=== PATIENT | male | born 1940 | race Caucasian/White ===

== ENCOUNTER 2019-06-24 15:33 | Outpatient (CLI) | payer MEDICARE, SELFPAY ==
--- NOTE | 2019-06-24 15:52 | CT_ITS ---
WS: [id number] CT CHEST TECHNIQUE: Noncontrast CT of the chest with coronal and sagittal reformatted images. CLINICAL INFORMATION: CHRONIC COUGH COMPARISON: DLP: 1171.[address] scans at [facility] use at least one of these dose optimization techniques: automat ed exposure control; mA and/or kV adjustment per patient size (includes targeted exams where dose is matched to clinical indication); or iterative reconstruction. FINDINGS: Mild chronic emphysematous changes. No acute pulmonary infiltrates. No consolidation or pleural fluid . No suspicious pulmonary parenchymal opacities. No mediastinal or hilar lymphadenopathy. Thoracic aortic calcification. Coronary calcification. No ax illary lymphadenopathy. Cholelithiasis. Normal GE junction. Ankylosis thoracic spine. Postoperative c hanges partially visualized in the thoracolumbar junction and lower cervical spine. Right total shoul prmio arthroplasty. CT/CT chest wo con [id number] IMPRESSION: 1. Mild chronic emphysematous changes. No acute pulmonary infiltrates. 2. No suspicious pulmonary parenchymal opacities. 3. No mediastinal or hilar lymphadenopathy. 4. Aortic calcification including coronary. 5. Cholelithiasis. This can be followed up with ultrasound.
== END 2019-06-24 15:34 | disposition home or self-care (01) ==
LOC: RADWPI 15:38
PROVIDERS: Family Provider Family Medicine; PCP Family Medicine; Visit Provider Family Medicine
DX: J43.9 Emphysema, unspecified (principal); R05 Cough; I70.0 Atherosclerosis of aorta; K80.20 Calculus of gallbladder without cholecystitis without obstruction
CPT/HCPCS: 71250

== ENCOUNTER 2019-09-21 13:40 | Outpatient (CLI) | payer MEDICARE, SELFPAY ==
--- NOTE | 2019-09-21 14:25 | PFTS_ITS ---
Date of Study:09/21/19 Date of Dictation: MECHANICS: Forced vital capacity (FVC) is reduced. Forced expiratory volume in one second (FEV1) is normal. FEV1/FVC is normal. FLOW VOLUME LOOP: Narrow. LUNG VOLUMES: Total lung capacity (TLC) is normal. Residual volume (RV) is normal. DIFFUSING CAPACITY FOR CARBON MONOXIDE: Moderately reduced. INTERPRETATION: The pulmonary function tests are consistent with mild restriction. Lung volumes are normal. Gas exchange (DLCO) is moderately reduced. MTDD
== END 2019-09-21 13:41 | disposition home or self-care (01) ==
LOC: RT 13:44
PROVIDERS: PCP Family Medicine; Visit Provider Family Medicine
DX: R05 Cough (principal)
CPT/HCPCS: 94010; 94726; 94729

== ENCOUNTER 2019-10-21 07:00 | Outpatient (CLI) | payer MEDICARE, SELFPAY ==
--- NOTE | 2019-10-21 07:15 | USCV_ITS ---
Sergio Whyte Age: 79 Gender: M : 1940 Exam Date: 10/21/2019 06:57 Ordering Phys: Zak Medeiros MD ([email or web address]) Technologist: Emmanuelle Anderson Exam Location: [facility] [place] Indication: Carotid stenosis surveillance Risk Factors: Unknown Previous Vascular Surgery: R CEA Right Brachial BP: / Left Brachial BP: / Right Left Velocity (cm/s) Spectral Plaque Velocity (cm/s) Spectral Plaque Syst/Diast Broadening Syst/Diast Broadening 82.40/ 14.70 Prox CCA 67.50 / 12.00 67.80/ 6.40 Mid CCA 76.00 / 15.40 62.80/ 9.90 Homo Distal CCA 64.90 / 13.70 66.20/ 11.00 Prox ICA 67.30 / 9.90 Hetro 62.80/ 13.20 Mid ICA 56.20 / 15.40 62.80/ 11.00 Distal ICA 51.30 / 11.10 115.10 ECA 83.25 1.05 ICA/CCA 1.04 Antegrade Vertebral Antegrade 42.70/ 13.20 cm/s 64.90/ 12.00 cm/s Bi Subclavian Tri 95.90 70.90 FINDINGS Comparison: 12-03-18. Prior right CEA. Tortuous carotid arteries with diffuse atherosclerosis, left greater than right. No recurrent or significant stenosis. CONCLUSIONS Bilateral ICA stenosis less than 50%. Mild bilateral diffuse atherosclerosis, left >right. No significant stenosis. Dr. Amy Martin DO (Electronically Signed) Final Date: 21 October 2019 07:53 S
== END 2019-10-21 07:01 | disposition home or self-care (01) ==
LOC: RAD 07:02
PROVIDERS: PCP Family Medicine; Visit Provider Internal Medicine Cardiovascular Disease
DX: I65.23 Occlusion and stenosis of bilateral carotid arteries (principal)
CPT/HCPCS: 93880

== ENCOUNTER → 2019-12-08 09:55 | Day surgery (SDC) | payer MEDICARE, SELFPAY ==
[2019-12-08 10:17] VITALS: BMI 34.9
[2019-12-08 10:29] VITALS: BP 140/55; PULSE 62; RESP 18; TEMP 36.3; O2SAT 18
[2019-12-08] MEDS: iron sucrose 200 MG in sodium chloride 0.9% (100 ml) 100 ML 220 MG IV (10:30)
== END ==
PROVIDERS: PCP Family Medicine; Visit Provider Nurse Practitioner
DX: D50.9 Iron deficiency anemia, unspecified (principal); N18.4 Chronic kidney disease, stage 4 (severe)
CPT/HCPCS: 96365; J1756

== ENCOUNTER 2019-12-08 13:48 | Outpatient (CLI) | payer MEDICARE, SELFPAY ==
--- NOTE | 2019-12-11 13:31 | ONC FU_ITS ---
Dr. Ferrari Patient Follow-Up Note Patient: Sergio Whyte Unit #: [id number]: 1940 Dicatated By: Riley Ferrari M.D.Date of Visit:Dec 08, 2019 Onc Med Follow-up/Prog Note Chief Complaint: Carcinoma of right renal pelvis. 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 He has a history of nephrolithiasis. He had seen Dr. Cartagena with nausea and leukocytosis following back surgery in November 2016. He was evaluated with CT abdomen/pelvis on 12/03/2016. There were no acute intra-abdominal or pelvic findings noted on that study. However, findings included a soft tissue attenuation within the right kidney lower pole calyx measuring 1.3 x 2.3 cm. Reported differential included inflammatory or neoplastic lesion. Also noted was a nonobstructing right ureteral pelvic junction calculus measuring 9.6 mm. There was no inguinal, retroperitoneal, or mesenteric lymphadenopathy noted. He was referred to Dr. Glaser. The scans were reviewed at the [facility]. Ultimately, he did opt to proceed with cystoscopy and right flexible ureterorenoscopy on 05/05/2017. Several areas of papillary transitional cell carcinoma-appearing lesions were noted extending in the infundibulum to the upper pole compound calyx. Biopsy did confirm high-grade papillary carcinoma, estimated Eloy's grade 3. He was referred to Dr. Dominic Anthony. On 06/16/2017 he underwent laparoscopic robotic-assisted right nephroureterectomy. Pathology showed high-grade, invasive papillary urothelial carcinoma measuring 2.8 x 1.2 x 1.2 cm. Tumor was noted to invade beyond the muscularis into the renal parenchyma. The margins were negative. There were no lymph nodes included in the surgical specimen. His postoperative course was complicated by cellulitis/wound infection, but ultimately it did heal. In the meantime, he was seen at [facility] [place] [facility] for a second opinion evaluation, and observation/expectant management was recommended, to include surveillance CT scanning every 3 months. His other medical illnesses include hypertension, hyperlipidemia, coronary artery disease, chronic kidney disease, benign prostatic hypertrophy, nephrolithiasis, degenerative arthritis, Sjogren's syndrome, and depression. He had previously smoked 1-1/2 packs of cigarettes daily for a period of 20 years. He quit smoking in 1976. INTERIM HISTORY: Surveillance CT scans of the chest, abdomen, and pelvis on 11/14/2017 showed no evidence of recurrent or metastatic disease. His repeat CT scans on 02/19/2018 again showed no evidence of recurrent or metastatic disease in the chest, abdomen, or pelvis. He remained on observation/expectant management. He underwent a reverse right shoulder replacement in April 2018. He tolerated that procedure very well, but he then had an upper GI bleed in May. He did require transfusion of 2 units of PRBC. He then continued on an iron supplement and he stopped aspirin. Surveillance CT scans on 08/19/2018 showed no evidence of metastatic disease in the chest, abdomen, or pelvis. The right renal fossa appeared unremarkable. Surveillance CT scans on 02/11/2019 showed no evidence for recurrent or metastatic disease in the chest, abdomen, or pelvis. He continued on observation/expectant management. He is seen for a scheduled visit. He says his energy is not good, but he is able to do light work. ECOG score is 1. He has good appetite. His weight is stable. He has no fever or night sweats. He has occasional sinus drainage, and he has a hacking cough. He says his breathing is not real good. He does not complain of chest pain. He has no GI/ complaints other than occasional constipation. He has joint pain, especially in his hands. Recently he has been having pain in the posterior/lateral left hip area. He does not complain of headache. He has occasional orthostatic lightheadedness. He reports having numbness in both hands. Medications: Aspirin 1 Tablet (of 81 mg) Oral daily, Cholecalciferol 1 Tablet (of 2000 Units) Oral daily, Docusate Sodium 1 Tablet (of 100 mg) Oral daily, Escitalopram Oxalate 1 Tablet (of 20 mg) Oral daily, Flonase 2 spray(s) (of 50 mcg/act) Suspension Nasal daily, Isosorbide Mononitrate ER 1 Tablet (of 60 mg) Tablet SR 24 HR Oral daily, Multivitamin 1 Tablet Oral daily, Omeprazole 1 Tablet (of 40 mg) Capsule Delayed Release Oral daily, Simvastatin 1 Tablet (of 40 mg) Oral daily, Terazosin HCl 1 Tablet (of 10 mg) Capsule Oral daily, Ventolin HFA 1 Puff(s) (of 108 (90 base) mcg/act) Aerosol, solution Inhalation PRN, ZyrTEC Allergy 1 Tablet (of 10 mg) Oral daily Allergies: No Known Allergies. Review of Systems: Constitutional - His energy is low, but he is able to do light work. His appetite is good and weight is up a few pounds. No fever, night sweats, or hot flashes. ECOG score is 1, ENMT - He has sinus congestion/drainage. No mouth sores. No sore throat or difficulty swallowing, Hematologic/Lymphatic - No abnormal bruising or bleeding, Respiratory - He has shortness of breath. He has a hacking cough. No pleuritic pain or hemoptysis, Cardiovascular - No angina pain. No palpitations, Gastrointestinal - No nausea or vomiting. No heartburn or acid reflux. No diarrhea. He has occasional constipation. No blood in the stool or black stools, Genitourinary (M) - No dysuria or hematuria. No urinary frequency. No urgency or incontinence, Musculoskeletal - He has joint pain in his hands and in his left hip, Integumentary - No skin complications, Neurologic - No headache or dizziness. He has numbness and tingling in his hands. No other focal neurologic symptoms, Psychiatric - He has anxiety/depression. No insomnia. Vital Signs: Performed on Dec 08, 2019 13:59 Height - 68.00 in Weight - 239.6 lbs (HIGH) BSA - 2.21 sq.m BMI - 36.43 (HIGH) Temperature - 98.1 F (LOW) Pulse - 61 /min Respiration - 20 /min BP - 117/60 mm(hg) O2 Sat - 96 % Pain - 0 Physical Examination: Constitutional - He looks pretty good generally, Eyes - Sclerae nonicteric. Conjunctivae clear, ENMT - No lesions noted in the oral cavity, Hematologic/Lymphatic - No cervical, clavicular, or axillary adenopathy, Respiratory - Lungs are clear with some decrease in air movement bilaterally, Cardiovascular - Heart rhythm is regular. There is a II/ systolic murmur. There is no gallop or rub noted, Abdomen - Soft. Liver and spleen are not enlarged. There is no abdominal mass or ascites noted and there is no inguinal adenopathy, Extremities - No edema, Neurologic - No focal neurologic deficits noted. Lab/Imaging: Test performed on Nov 16, 2019 11:41 PTH, Intact 55 pg/mL Glucose 82 mg/dL Protein, Total 7.5 g/dL Vitamin D (25-Hydroxy) 56 ng/mL Albumin, SPE 3.9 g/dL BUN 31 mg/dL Creatinine 2.15 mg/dL Cr Clearance (Est) 41.42 mL/min Sodium 137 mmol/L Potassium 4.5 mmol/L Chloride 104 mmol/L CO2 24 mmol/L Calcium 9.1 mg/dL Albumin 4.0 g/dL WBC 7.5 10^9/L RBC 3.94 10^12/L HGB 10.2 g/dL HCT 31.9 % MCV 80.8 fl MCH 25.9 pg MCHC 32.0 g/dL RDW 17.7 % Platelet Count 306.0 10^9/L Neutrophils (Gran) 5.2 10^9/L Lymphocytes 1.6 10^9/L Monocytes 0.7 10^9/L Manual Lymphocytes 21.3 % Manual Monocytes 9.0 % [place] / Lambda Ratio 1.68 Absolute Value Lambda Light Chain 54.4 [place] Light Chain 91.5 [id number]-[id number] 0.3 g/dL Mvcwf-1-yjsabzsx 0.8 g/dL Beta Globulin 0.6 g/dL Gamma Globulin 1.6 g/dL SPE Interpretation No restricted band (M-spike) seen Impression: 1. 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 2. He underwent laparoscopic, robotic-assisted right nephroureterectomy on 06/16/2017. He is being followed on observation/expectant management. His other medical illnesses include: 3. Hypertension. 4. Hyperlipidemia. 5. Coronary artery disease. 6. Chronic kidney disease. 7. Benign prostatic hypertrophy. 8. Nephrolithiasis. 9. Degenerative arthritis/degenerative disease of the spine. 10. Sjogren syndrome. 11. He has had mild anemia. 12. Obesity. 13. Depression. He has remained on observation/expectant management following the surgery in May 2017. His subsequent clinical course was complicated by an upper GI bleed in May 2018 following reverse right shoulder replacement in April. He had an uneventful recovery. He has since then continued regular follow-up with his rn corrections. His laboratory studies in October did show mild anemia, and he has been scheduled to get Venofer infusions as an outpatient. He is overdue on his surveillance CT scanning. Plan: He remains on observation/expectant management. I will make sure he has follow-up for the anemia. He will be scheduled for noncontrast CT scans of the chest, abdomen, and pelvis. He will have further evaluation as indicated. I will tentatively plan a follow-up visit in 6 months. Signed By: Riley Ferrari M.D. <<Signature on File>>
== END 2019-12-08 13:49 | disposition home or self-care (01) ==
LOC: ONCMED 13:52
PROVIDERS: PCP Family Medicine; Visit Provider Internal Medicine Medical Oncology
DX: Z08 Encounter for follow-up examination after completed treatment for malignant neoplasm (principal); Z85.53 Personal history of malignant neoplasm of renal pelvis; I10 Essential (primary) hypertension; E78.5 Hyperlipidemia, unspecified; I25.10 Atherosclerotic heart disease of native coronary artery without angina pectoris; N18.9 Chronic kidney disease, unspecified; N40.0 Benign prostatic hyperplasia without lower urinary tract symptoms; N20.0 Calculus of kidney; M47.9 Spondylosis, unspecified; M35.00 Sjogren syndrome, unspecified; D64.9 Anemia, unspecified; E66.9 Obesity, unspecified; F32.9 Major depressive disorder, single episode, unspecified
CPT/HCPCS: 99214

== ENCOUNTER → 2019-12-15 09:46 | Day surgery (SDC) | payer MEDICARE, SELFPAY ==
[2019-12-15] MEDS: iron sucrose 200 MG in sodium chloride 0.9% (100 ml) 100 ML 220 MG IV (10:29)
[2019-12-15 10:31] VITALS: BP 147/74; PULSE 67; RESP 18; TEMP 36.6; O2SAT 97
== END ==
PROVIDERS: PCP Family Medicine; Visit Provider Nurse Practitioner
DX: D50.9 Iron deficiency anemia, unspecified (principal); N18.4 Chronic kidney disease, stage 4 (severe)
CPT/HCPCS: 96365; J1756

== ENCOUNTER 2019-12-17 07:32 | Outpatient (CLI) | payer MEDICARE, SELFPAY ==
--- NOTE | 2019-12-17 08:19 | CT_ITS ---
WS: [id number] CT CHEST, ABDOMEN AND PELVIS NONCONTRAST HISTORY: CARCINOMA OF R RENAL PELVIS TECHNIQUE: Contiguous 5 mm axial imaging performed through the chest, abdomen and pelvis without IV c ontrast, oral contrast has been provided. Coronal and sagittal reformats chest. Coronal and sagittal reformats through the abdomen and pelvis. All CT scans at [facility] use at least one of these dose optimization techniques: automated exposure control; mA and/or kV adjustment per patient s ize (includes targeted exams where dose is matched to clinical indication); or iterative reconstructi on. CONTRAST: None DLP: 2253.8 mGy.cm COMPARISON: 06/24/2019 and 02/11/[address]: New groundglass and mild interstitial thickening at the RIGHT lung base. There are 2 separa te areas of increased interstitial thickening and groundglass attenuation. No pulmonary nodule or mas s. No pneumonia. Moderate atherosclerosis aorta with no aneurysm. Pulmonary artery size is equal to t he aorta. Severe atherosclerosis of the [place] coronary arteries. No adenopathy is identified on this unenhanced study. Small hiatal hernia. Contiguous anterior bridging osteophytes throughout the thora cic spine. Prior anterior cervical fusion lower cervical spine. No destructive rib lesions. Abdomen CT: Liver and spleen are normal size. Mild hepatic steatosis. Cholelithiasis without acute ch olecystitis. Normal appearance of the spleen and adrenal glands. Atherosclerosis continues into the a caitie with no aneurysm. Prior RIGHT nephrectomy. No recurrent mass at the renal bed. LEFT kidney is no rmal size with no obstruction or mass. No adenopathy or ascites. Moderate fecal retention of the GI tract. Numerous diverticula in the descending and sigmoid colon. N o acute inflammation. No obstruction. Pelvic CT: Small urinary bladder. No free fluid or adenopathy. Prostate gland is not enlarged. Extensive posterior lumbar fusion hardware. Osteonecrosis RIGHT femoral head. CT/CT chest abd pel wo con IMPRESSION: 1. No metastatic disease to the chest, abdomen or pelvis. 2. Prior RIGHT nephrectomy with no recurrent mass in the renal bed. 3. New area of groundglass attenuation in the RIGHT lower lobe. Probably area of pneumonitis. 4. Cholelithiasis without acute cholecystitis. 5. Extensive diverticulosis. 6. Severe [place] coronary artery atherosclerosis.
[2019-12-17] MEDS: iohexol 300 mg/mL 50 mL Btl PO (08:32)
== END 2019-12-17 07:33 | disposition home or self-care (01) ==
LOC: RAD 07:36
PROVIDERS: PCP Family Medicine; Visit Provider Internal Medicine Medical Oncology
DX: C65.1 Malignant neoplasm of right renal pelvis (principal); Z90.5 Acquired absence of kidney; K80.20 Calculus of gallbladder without cholecystitis without obstruction; K57.90 Diverticulosis of intestine, part unspecified, without perforation or abscess without bleeding; I25.10 Atherosclerotic heart disease of native coronary artery without angina pectoris
CPT/HCPCS: 71250; 74176

== ENCOUNTER → 2019-12-22 09:45 | Day surgery (SDC) | payer MEDICARE, SELFPAY ==
[2019-12-22] MEDS: iron sucrose 200 MG in sodium chloride 0.9% (100 ml) 100 ML 220 MG IV (10:10)
[2019-12-22 10:11] VITALS: BP 132/65; PULSE 64; RESP 18; TEMP 36.7; O2SAT 96
== END ==
PROVIDERS: PCP Family Medicine; Visit Provider Nurse Practitioner
DX: D50.9 Iron deficiency anemia, unspecified (principal); N18.4 Chronic kidney disease, stage 4 (severe)
CPT/HCPCS: 96365; J1756

== ENCOUNTER 2020-01-05 09:19 | Outpatient (RCR) | payer MEDICARE, OTHER, SELFPAY ==
[2019-12-29 10:11] VITALS: BMI 36.0
[2019-12-29] MEDS: iron sucrose 200 MG in sodium chloride 0.9% (100 ml) 100 ML 220 MG IV (10:20)
[2019-12-29 10:38] VITALS: BP 151/65; PULSE 69; RESP 20; TEMP 36.9; O2SAT 94
[2020-01-05] MEDS: iron sucrose 200 MG in sodium chloride 0.9% (100 ml) 100 ML 220 MG IV (10:18)
[2020-01-05 10:22] VITALS: BP 138/97; PULSE 67; RESP 18; TEMP 36.4; O2SAT 97
== END 2020-01-26 23:59 | disposition home or self-care (01) ==
LOC: OPS 09:19
PROVIDERS: PCP Family Medicine; Visit Provider Nurse Practitioner
DX: N18.4 Chronic kidney disease, stage 4 (severe) (principal); D50.9 Iron deficiency anemia, unspecified
CPT/HCPCS: 96365; J1756

== ENCOUNTER 2020-07-16 17:23 | Emergency (ER) | payer MEDICARE, SELFPAY ==
--- NOTE | 2020-07-16 17:46 | CTR_ITS ---
PROCEDURE INFORMATION: Exam: CT Chest Without Contrast; Diagnostic Exam date and time: 07/16/2020 6:50 PM Age: 79 years old Clinical indication: Injury or trauma; Ruq; Blunt trauma (contusions or hematomas); Prior surgery; Surgery date: 6+ months; Surgery type: R neph, hip; Patient HX: R rib and abd pain w difficulty breathing after fall 3 steps from ladder - HX renal CA; Additional info: Right rib and abdomen pain after fall from 3 steps of ladder TECHNIQUE: Imaging protocol: Diagnostic computed tomography of the chest without contrast. Radiation optimization: All CT scans at this facility use at least one of these dose optimization techniques: automated exposure control; mA and/or kV adjustment per patient size (includes targeted exams where dose is matched to clinical indication); or iterative reconstruction. COMPARISON: CT chest abd pel wo con 12/17/2019 9:50 AM RADIATION DOSE METRICS: Total DLP (mGy-cm): 2438.91 FINDINGS: Lungs: Unremarkable. No consolidation. No masses. Pleural spaces: Small (10%) right pneumothorax. No pleural effusion. Heart: Unremarkable. No cardiomegaly. No pericardial effusion. Aorta: Unremarkable. No aortic aneurysm. Lymph nodes: Unremarkable. No enlarged lymph nodes. Bones/joints: Moderately comminuted and displaced fracture of the posterolateral right 8th rib and nondisplaced fracture of the anterolateral right 8th rib. Mildly displaced fracture of the posterolateral right 9th rib. Soft tissues: Subcutaneous emphysema along the right lateral chest wall. IMPRESSION: 1. Small (10%) right pneumothorax. 2. Moderately comminuted and displaced fracture of the posterolateral right 8th rib and nondisplaced fracture of the anterolateral right 8th rib. 3. Mildly displaced fracture of the posterolateral right 9th rib. 4. Subcutaneous emphysema along the right lateral chest wall. PROCEDURE INFORMATION: Exam: CT Abdomen And Pelvis Without Contrast Exam date and time: 07/16/2020 6:50 PM Age: 79 years old Clinical indication: Injury or trauma; Ruq; Blunt trauma (contusions or hematomas); Prior surgery; Surgery date: 6+ months; Surgery type: R neph, hip; Patient HX: R rib and abd pain w difficulty breathing after fall 3 steps from ladder - HX renal CA; Additional info: Right rib and abdomen pain after fall from 3 steps of ladder TECHNIQUE: Imaging protocol: Computed tomography of the abdomen and pelvis without contrast. Radiation optimization: All CT scans at this facility use at least one of these dose optimization techniques: automated exposure control; mA and/or kV adjustment per patient size (includes targeted exams where dose is matched to clinical indication); or iterative reconstruction. COMPARISON: CT chest abd pel wo con 12/17/2019 9:50 AM RADIATION DOSE METRICS: Total DLP (mGy-cm): 2438.91 FINDINGS: Lungs: The visualized lung bases are clear. Liver: Normal size and density. No focal mass. Gallbladder and bile ducts: A few tiny calcified gallstones. No biliary dilatation. Pancreas: No evidence of mass. No ductal dilation. Spleen: No splenomegaly or mass. Adrenal glands: Normal. Kidneys and ureters: Status post right nephrectomy. The left kidney has a normal noncontrast appearance. Stomach and bowel: Several colonic diverticula. No signs of acute diverticulitis. No focal bowel wall thickening or mass. No signs of obstruction. Appendix: No evidence of appendicitis. Intraperitoneal space: No free air. No free fluid or evidence of abscess. Vasculature: No concerning abnormalities. Lymph nodes: No lymphadenopathy. Urinary bladder: Normal CT appearance. Reproductive: Normal CT appearance for age. Bones/joints: Multilevel posterior fusion and degenerative changes of the spine. The bones appear demineralized. No acute osseous abnormality of the abdomen/pelvis skeleton. Soft tissues: Small fat containing right inguinal hernia. CT/CT chest abd pel wo con IMPRESSION: No acute traumatic abnormality of the abdomen or pelvis. Radiation Dose CTDIVOL = (mGy): DLP = 2438.91~2438.91 (mGy-cm)
--- NOTE | 2020-07-16 17:56 | ED_ITS ---
HPI - Fall General: Chief Complaint: Fall Stated Complaint: RIGHT RIB PAIN S/P FALL Time Seen by Provider: 07/16/20 17:39 History of Present Illness: HPI Narrative: The patient is an 79-year-old male who comes to the ER after a fall off of 2 ladder steps. The ladder slid down beneath him and he fell onto his right side. He complains of right lower rib and upper abdomen pain. Denies loss of consciousness. MD complaint: fall Place fall occurred: home Loss of consciousness: None Prolonged down time: no Symptoms prior to fall: none Context: tripped/slipped Severity: moderate Associated symptoms-after fall: Denies abdominal pain, chest pain, confusion, difficulty walking, headache(s) or neck pain Review of Systems General: Reports: 10 or more systems reviewed and unremarkable except in HPI and below Const: Denies: fatigue Eyes: Denies: change in vision, blurry vision or eye redness ENMT: Denies: throat pain, swelling of lips/tongue, ear or mastoid pain or nasal congestion Card: Denies: chest pain, palpitations, irregular heart rhythm, edema, dyspnea on exertion or orthopnea Resp: Reports: dyspnea; Denies: productive cough or non-productive cough GI: Denies: abdominal pain, diarrhea or GI cramping : Denies: flank pain, urinary frequency or urinary urgency Musc: Denies: neck pain, back pain, extremity pain, joint pain, joint redness, limited range of motion or muscle weakness Skin/Breast: Denies: rash, pruritus, erythema, skin pain or skin tenderness Neuro: Denies: headache(s), numbness in extremities, weakness in extremities, sensory changes, difficulty walking, dizziness, confusion or Slurred speech present Psych: Denies: anxiety or depression Endo: Denies: polyuria All/Imm: Denies: urticaria, throat swelling or tongue swelling PFSH ED PFSH: Medical History (Updated 07/16/20 @ 21:08 by Thomas Feliciano MD) Aortic stenosis ASHD (arteriosclerotic heart disease) Carotid stenosis, bilateral CHF (congestive heart failure) CKD (chronic kidney disease) Erectile disorder due to medical condition in male History of nonmelanoma skin cancer HTN (hypertension) Hyperlipidemia Obesity CANDIDA on CPAP Sjogren's disease SOB (shortness of breath) Surgical History History of nephrectomy, right S/P carotid endarterectomy Family History Mother CHF (congestive heart failure) Sister Cancer UTERINE Other CAD (coronary artery disease) Hyperlipidemia Social History Smoking and tobacco status: former smoker Alcohol intake: current Household members: spouse Marital status: Physical Exam Narrative: EXAM NARRATIVE: Satting 89% on room air. He is tender to his right lateral chest wall and right abdominal wall as well. No significant bruising seen. Reduced breath sounds bilaterally. Const: COMMON NORMALS: no acute distress, average body habitus, patient oriented x3, no limitations, healthy appearing, alert and well nourished GENERAL APPEARANCE: cooperative, comfortable, well kempt and well developed ORIENTATION/CONSCIOUSNESS: Yes awake, Yes oriented to person, Yes oriented to place and Yes oriented to time HENMT: COMMON NORMALS: normocephalic, external ears normal and Normal external nose present HEAD & SCALP: normal to inspection and normocephalic NOSE: Normal external nose present EXTERNAL EAR: Yes external ears normal MOUTH: Normal oral and palatal mucosa present THROAT: posterior oropharynx normal Eye: COMMON NORMALS: Equal, round and reactive pupils present and EOMs intact bilaterally GENERAL EYE: appearance normal, both eyes and all related structures PUPIL: Yes Equal, round and reactive pupils present Neck/C-Spine: COMMON NORMALS: full ROM, no lymphadenopathy, no meningeal signs and no JVD GENERAL: Yes normal visual inspection Lymph: LYMPHATIC: no lymphadenopathy noted Chest: COMMONS NORMALS: normal inspection of the chest Chest images (male): 1. Tender to right lateral chest wall and right abdominal wall as well. Resp: COMMON NORMALS: normal respiratory effort, No retractions, No use of accessory muscles and percussion normal EFFORT & INSPECTION: Yes able to speak in complete sentences AUSCULTATION: diminished lung sounds bilateral PERCUSSION: percussion normal Cardio: COMMON NORMALS: no JVD, regular rate, regular rhythm, S1 normal heart sound present, S2 normal heart sound present and Peripheral pulses 2+ throughout RATE: regular rate RHYTHM: regular rhythm HEART SOUNDS: S1 normal heart sound present and S2 normal heart sound present PERIPHERAL PULSES: Peripheral pulses 2+ throughout GI: COMMON NORMALS: Normal to inspection, nondistended, normoactive bowel sounds present, Soft to palpation, non-tender and no masses INSPECTION: Yes normal to inspection PALPATION: Yes Soft to palpation : COMMON NORMALS: Yes no CVA tenderness BLADDER/KIDNEY EXAM: Yes no CVA tenderness Back/Pelvis: COMMON NORMALS: no CVA tenderness, thoracic and lumbar spine normal to inspection, no thoracic nor lumbar tenderness and thoraco-lumbar ROM normal Extremity: COMMON NORMALS: normal to inspection, full ROM, capillary refill normal, no joint enlargement and no pedal edema GENERAL: Yes normal exam except as noted Neuro: COMMON NORMALS: patient oriented x3, CN's II-XII intact bilaterally, moves all extremities, no focal motor deficits, no sensory deficits noted and gait normal SENSORIUM/ORIENTATION: Yes alert, Yes oriented to person, Yes oriented to place and Yes oriented to time MENINGEAL SIGNS: Yes no meningeal signs Psych: COMMON NORMALS: mental status grossly normal, Normal thought process present, cooperative, normal affect and speech normal APPEARANCE: Yes well kempt ATTITUDE: Yes calm SPEECH: Yes normal speech THOUGHT PROCESS: Normal thought process present Skin: COMMON NORMALS: no rashes or lesions noted GENERAL SKIN EXAM: no rashes or lesions noted Procedures Chest Tube Chest Tube 1: Chest Tube Location: right, anterior axillary line and fifth interspace Chest Tube Prep: Yes betadine prep Local Anesthetic: lidocaine 1% Amount of anesthesia used (mL): 10 Incision Made With: #11 blade Post Procedure: sutured to skin and sterile dressing applied Tube Drainage: none Post Procedure CXR?: Yes Patient Tolerated Procedure: Yes Course Vital Signs: Vital signs: Vital Signs Temperature 98.8 F 07/16/20 18:09 Pulse Rate 72 07/16/20 20:19 Respiratory Rate 23 H 07/16/20 20:19 Blood Pressure 181/89 07/16/20 20:19 Pulse Oximetry 93 07/16/20 20:19 MDM - Fall MDM Narrative: Medical decision making narrative: The patient came to the ER after a fall off a ladder on the right side. He has rib fractures on his eighth and ninth ribs with a small pneumothorax. There are 2 fractures on the eighth rib and risk of possible flail chest. Discussed with Dr. Reynaldo Doran who accepts for transfer and recommends placement of a chest tube prior to arrival. I consented them for this procedure and they accepted the risks of pain, infection, bleeding, worsening pneumothorax, and damage to nerves. He is alert and oriented and accepts the risks and signed the consent paperwork. Chest tube was placed with no complications. He tolerated the procedure well. He is stable for transfer to [facility]. Lab Data: Labs: Lab Results 07/16/20 07/16/20 Range/Units 19:37 19:37 WBC 11.5 H (4.0-10.0) 10^3/ uL RBC 4.46 (4.1-5.3) 10^6/u L Hgb 13.6 (11.7-16.6) g/dL Hct 41.8 L (42.0-52.0) % MCV 93.7 (80-94) fL MCH 30.5 (28.0-34.0) pg MCHC 32.5 (30.0-36.0) g/dL RDW 14.2 (12.1-15.1) % Plt Count 199 (130-400) 10^3/c mm MPV 9.8 (7.4-10.4) fL Neut % (Auto) 84.8 % Lymph % (Auto) 7.5 % [place] % (Auto) 6.9 % Eos % (Auto) 0.2 % Baso % (Auto) 0.2 % Neut # (Auto) 9.77 H (1.8-7.7) 10^3/u L Lymph # (Auto) 0.9 (0.8-4.8) 10^3/u L [place] # (Auto) 0.8 (0.2-0.9) 10^3/u L Eos # (Auto) 0.0 (0.0-0.8) 10^3/u L Baso # (Auto) 0.0 (0.0-0.1) 10^3/u L Nucleated RBC % (a uto) 0 % Nucleated RBCs # 0.0 /100WBC Sodium 137 (136-145) mmol/L Potassium 5.1 (3.5-5.1) mmol/L Chloride 102 (98-107) mmol/L Carbon Dioxide 23 (22-29) mmol/L Anion Gap 17.1 (5-19) BUN 29 H (8-23) mg/dL Creatinine 1.9 H (0.7-1.2) mg/dL GFR Calculation Not Reportable Glucose 133 H (65-115) mg/dL Calculated Osmolal ity 292 (285-295) mOsm/k g Calcium 9.0 (8.5-10.5) mg/dL Total Bilirubin 0.4 (0.15-1.2) mg/dL AST 27 (0-40) U/L ALT 25 (0-41) U/L Alkaline Phosphata se 85 (40-130) IU/L NT-Pro-B Natriuret Pep 211 (0-450) pg/mL Total Protein 7.5 (6.6-8.7) g/dL Albumin 4.1 (3.5-5.2) g/dL Globulin 3.4 (1.3-4.6) g/dL Critical Care Time Critical Care Time: Critical Care Time: Yes Total Critical Care Time: 60 Attestation: Evaluation of multiple rib fractures and pneumothorax as well as placement of chest tube and transfer to trauma center. Discharge Plan Discharge Patient Disposition: Xfer Short-Term Hosp Clinical Impression: Pneumothorax, traumatic, Multiple fractures of ribs Condition: Stable Referrals: Matthew Cartagena MD [Primary Care Provider] - Coding Level of Care Code ED Local Delivery Truck Driver for Chg Fwd Exam Comprehensive
[2020-07-16 18:09] VITALS: BP 140/76; PULSE 66; RESP 14; TEMP 37.1; O2SAT 90; BMI 34.9
[2020-07-16 19:03] VITALS: PULSE 78; RESP 16; O2SAT 91
[2020-07-16] MEDS: albuterol 8 gm MDI 2 PUFF INHALATION (19:03)
[2020-07-16 19:05] VITALS: PULSE 79
[2020-07-16 19:45] LABS: Basophils % 0.2 %; Eosinophils % 0.2 %; Hematocrit 41.8 % (42.0-52.0); Hemoglobin 13.6 g/dL (11.7-16.6); Lymphocytes # 0.9 10^3/uL (0.8-4.8); Lymphocytes % 7.5 %; Mean Corpuscular HGB Conc 32.5 g/dL (30.0-36.0); Mean Corpuscular Hemoglobin 30.5 pg (28.0-34.0); Mean Corpuscular Volume 93.7 fL (80-94); Mean Platelet Volume 9.8 fL (7.4-10.4); Monocytes # 0.8 10^3/uL (0.2-0.9); Monocytes % 6.9 %; Neutrophils # 9.77 10^3/uL (1.8-7.7); Neutrophils % 84.8 %; Nucleated Red Blood Cells % 0 %; Platelet Count 199 10^3/cmm (130-400); Red Blood Count 4.46 10^6/uL (4.1-5.3); Red Cell Distribution Width 14.2 % (12.1-15.1); White Blood Count 11.5 10^3/uL (4.0-10.0)
[2020-07-16 20:16] LABS: Alanine Aminotransferase 25 U/L (0-41); Albumin Level 4.1 g/dL (3.5-5.2); Alkaline Phosphatase 85 IU/L (40-130); Anion Gap 17.1 (5-19); Aspartate Amino Transferase 27 U/L (0-40); Blood Urea Nitrogen 29 mg/dL (8-23); Carbon Dioxide 23 mmol/L (22-29); Chloride 102 mmol/L (98-107); Globulin 3.4 g/dL (1.3-4.6); Glucose 133 mg/dL (65-115); NT Pro B Type Natriuretic Pept 211 pg/mL (0-450); Osmolality Calculated 292 mOsm/kg (285-295); Potassium 5.1 mmol/L (3.5-5.1); Sodium 137 mmol/L (136-145); Total Bilirubin 0.4 mg/dL (0.15-1.2); Total Protein 7.5 g/dL (6.6-8.7)
[2020-07-16 20:19] VITALS: BP 181/89; PULSE 72; RESP 23; O2SAT 93
--- NOTE | 2020-07-16 21:02 | XRR_ITS ---
PROCEDURE INFORMATION: Exam: XR Chest Exam date and time: 07/16/2020 9:03 PM Age: 79 years old Clinical indication: Device placement; Chest tube; Additional info: Post chest tube placement TECHNIQUE: Imaging protocol: XR of the chest Views: 1 view. COMPARISON: CT chest abd pel wo con 07/16/2020 7:23 PM FINDINGS: Tubes, catheters and devices: A right-sided chest tube terminates near the right lung apex. Lungs: Well inflated and clear. Pleural spaces: No pleural effusion or significant pneumothorax. Heart/Mediastinum: The cardiac shadow is normal in size. Bones/joints: Right-sided rib fractures as described on CT chest of the same day. XR/XR chest 1V portable [id number] IMPRESSION: 1. A right-sided chest tube terminates to the right lung apex. 2. No significant right pneumothorax on this exam.
[2020-07-16] MEDS: midazolam 1 mg/mL INJ 2 mL 0.5 MG IVP (21:11)
[2020-07-16] MEDS: morphine 4 mg/mL SDV 1 mL 2 MG IVP (21:11)
[2020-07-16 21:12] VITALS: BP 145/79; PULSE 75; RESP 24; O2SAT 92
[2020-07-16 22:45] VITALS: BP 142/82; PULSE 71; RESP 19; O2SAT 95
== END 2020-07-16 22:51 | disposition short-term general hospital (02) ==
PROVIDERS: Emergency Provider Family Medicine; PCP Family Medicine
DX: S22.41XA Multiple fractures of ribs, right side, initial encounter for closed fracture (principal); S27.0XXA Traumatic pneumothorax, initial encounter; I11.0 Hypertensive heart disease with heart failure; I50.9 Heart failure, unspecified; E78.5 Hyperlipidemia, unspecified; Z90.5 Acquired absence of kidney; Z87.891 Personal history of nicotine dependence; W11.XXXA Fall on and from ladder, initial encounter
CPT/HCPCS: 32551; 71045; 71250; 74176; 80053; 83880; 85025; 94640; 96374; 96375; 99285; J2250; J2270; J3535

== ENCOUNTER 2021-08-31 08:14 | Outpatient (CLI) | payer MEDICARE, SELFPAY ==
--- NOTE | 2021-08-31 08:26 | MR_ITS ---
WS: [id number] MRI CERVICAL SPINE NONCONTRAST HISTORY: NECK PAIN COMPARISON: 06/24/2018 CT cervical spine. Technique: Multiplanar, multisequence noncontrast imaging of the cervical spine. Straightening and reversal of the normal cervical lordosis. Severe degenerative disc space narrowing. Prior anterior cervical fusion at C6-7 with fusion across the interbody spacer. Severe disc space na rrowing at C5-6 and C7-T1. No marrow edema or fracture. Short segment area of increased signal in the cervical cord at the C4-5 level extends over a length o f 8 mm. Suspected additional area of increased T2 signal in the cervical cord at the C3-4 level exten ding over a length of 9 mm. C2-C3: Marked osteophytic ridging with annular disc bulging and facet arthritis. Ligamentum flavum hy pertrophy encroaches along the posterior thecal sac. Effacement of ventral CSF. There is moderate mary tral and LEFT foraminal stenosis. Mild RIGHT foraminal stenosis. C3-C4: Severe osteophytic ridging with annular disc bulging, central disc protrusion and facet arthri tis. There is significant encroachment upon the thecal sac. Severe central and LEFT foraminal stenosi s. Moderate RIGHT foraminal stenosis. C4-C5: Diffuse osteophytic ridging and disc bulging with moderate central protrusion. Mild facet and ligamentum flavum hypertrophy. Thecal sac is being deformed. Deformity of the cervical cord. Severe c entral and bilateral foraminal stenosis. C5-C6: Mild encroachment upon the thecal sac by facet disease and reversal normal curvature. There is still CSF surrounding the cord. Facet joint arthritis and foraminal osteophytes. Mild central and fo raminal stenosis. C6-C7: Mild narrowing of the central canal due to reversal of the normal curvature. There is mild mary tral and foraminal stenosis. C7-T1: Mild central stenosis. Mild to moderate bilateral foraminal stenosis predominantly due to oste ophyte disease and facet arthritis. Paraspinal soft tissue are normal. MR/MR cervical spin wo con* [id number] IMPRESSION: 1. Prior anterior cervical fusion with interbody spacer at C6-7. 2. Severe multilevel central and foraminal stenosis. Multifactorial stenosis i ncluding osteophytes and facet arthritis and disc disease with protrusions. 3. Severe central with LEFT foraminal stenosis at C3-4, moderate RIGHT foramin al stenosis. 4. Severe central and bilateral foraminal stenosis at C4-5. 5. Moderate central LEFT foraminal stenosis at C2-3. 6. Mild central and bilateral foraminal stenosis at C5-6 and C6-7. 7. Mild to moderate bilateral foraminal stenosis at C7-T1. 8. 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
--- NOTE | 2021-08-31 09:30 | MR_ITS ---
WS: [id number] MRI CERVICAL SPINE NONCONTRAST HISTORY: NECK PAIN COMPARISON: 06/24/2018 CT cervical spine. Technique: Multiplanar, multisequence noncontrast imaging of the cervical spine. Straightening and reversal of the normal cervical lordosis. Severe degenerative disc space narrowing. Prior anterior cervical fusion at C6-7 with fusion across the interbody spacer. Severe disc space na rrowing at C5-6 and C7-T1. No marrow edema or fracture. Short segment area of increased signal in the cervical cord at the C4-5 level extends over a length o f 8 mm. Suspected additional area of increased T2 signal in the cervical cord at the C3-4 level exten ding over a length of 9 mm. C2-C3: Marked osteophytic ridging with annular disc bulging and facet arthritis. Ligamentum flavum hy pertrophy encroaches along the posterior thecal sac. Effacement of ventral CSF. There is moderate mary tral and LEFT foraminal stenosis. Mild RIGHT foraminal stenosis. C3-C4: Severe osteophytic ridging with annular disc bulging, central disc protrusion and facet arthri tis. There is significant encroachment upon the thecal sac. Severe central and LEFT foraminal stenosi s. Moderate RIGHT foraminal stenosis. C4-C5: Diffuse osteophytic ridging and disc bulging with moderate central protrusion. Mild facet and ligamentum flavum hypertrophy. Thecal sac is being deformed. Deformity of the cervical cord. Severe c entral and bilateral foraminal stenosis. C5-C6: Mild encroachment upon the thecal sac by facet disease and reversal normal curvature. There is still CSF surrounding the cord. Facet joint arthritis and foraminal osteophytes. Mild central and fo raminal stenosis. C6-C7: Mild narrowing of the central canal due to reversal of the normal curvature. There is mild mary tral and foraminal stenosis. C7-T1: Mild central stenosis. Mild to moderate bilateral foraminal stenosis predominantly due to oste ophyte disease and facet arthritis. Paraspinal soft tissue are normal.
--- NOTE | 2021-08-31 14:30 | MR_ITS ---
WS: [id number] MRI LUMBAR SPINE NONCONTRAST HISTORY: LOW BACK PAIN/ARTHRODESIS STATUS COMPARISON: None available. TECHNIQUE: Sagittal and axial multisequence imaging is submitted. Patient was unable to complete this examination due to shortness of breath. The axial T2 sequence was not obtained. Extensive posterior lumbar fusion hardware extending from T12 to L5. Interbody spacers are noted at L 2-3, L3-4 and L4-5. L4 anterolisthesis by 8 mm. Ossification along the posterior longitudinal ligament. Large bridging osteophytes throughout the lum bar spine. Partial fusion across L2-3 and L3-4 and probably the L4-5 disc spaces. No marrow edema or fracture. Conus terminates normally at L1. L1-L2: Mild osteophytic ridging and disc bulging. Poor visualization of the foramina due to artifact from the hardware. No central stenosis. Large posterior laminectomy defect. L2-L3: Mild disc bulging and osteophytic ridging with large posterior laminectomy defects. No central stenosis. Poor visualization of the foramina but there does appear to be at least mild foraminal yuval nosis. L3-L4: Large posterior laminectomy defect. No central stenosis. Limited visualization of the foramina due to hardware artifact. L4-L5: Mild osteophytic ridging. Anterolisthesis of L4 causing mild migration cephalad of the disc. T here is a large posterior laminectomy defect. Increased fibrotic soft tissue surrounding the thecal s ac with at least a mild stenosis. Limited visualization of the foramina but suspect at least mild-to- moderate stenosis. L5-S1: Posterior laminectomy defect. At least moderate bilateral foraminal stenosis, LEFT greater raghu n RIGHT. MR/MR lumbar spine wo con* [id number] IMPRESSION: 1. Quality of this examination is suboptimal due to the extensive posterior arik mbar fusion hardware. Also, patient was unable to complete this examination due to shortness of breath and requested the study be terminated before all sequen jyoti were obtained. 2. L4 anterolisthesis by 8 mm. 3. Posterior lumbar fusion hardware extends from T12 to L5. Large posterior la minectomy defects are noted throughout the lumbar spine. 4. Mild central stenosis at the L4-5 level. 5. Difficulty evaluating the foramina due to the metal artifact. Suspect multi level foraminal stenosis but the extent cannot be determined accurately on this examination.
== END 2021-08-31 08:15 | disposition home or self-care (01) ==
LOC: RAD 08:16
PROVIDERS: PCP Family Medicine; Visit Provider Neurological Surgery
DX: M54.2 Cervicalgia (principal); M54.50 Low back pain, unspecified; Z98.1 Arthrodesis status
CPT/HCPCS: 72141; 72142; 72148

== ENCOUNTER → 2021-09-06 13:52 | Outpatient (BNVA) | payer MEDICARE, SELFPAY | PROVIDERS: PCP Family Medicine; Visit Provider Internal Medicine | DX: I11.0 Hypertensive heart disease with heart failure (principal); I50.9 Heart failure, unspecified; I25.10 Atherosclerotic heart disease of native coronary artery without angina pectoris; G47.33 Obstructive sleep apnea (adult) (pediatric); Z99.89 Dependence on other enabling machines and devices; I65.23 Occlusion and stenosis of bilateral carotid arteries; E66.9 Obesity, unspecified; Z68.35 Body mass index [BMI] 35.0-35.9, adult | CPT/HCPCS: 99214 ==

== ENCOUNTER 2021-12-10 08:22 | Outpatient (CLI) | payer MEDICARE, SELFPAY ==
--- NOTE | 2021-12-10 08:30 | USCV_ITS ---
Sergio Whyte Age: 81 Gender: M : 1940 Exam Date: 12/10/2021 09:07 Ordering Phys: Adin Thorne M.D ([email or web address]) Technologist: Meghana Andrew [place] [facility] [place]: carotid stenosis, Risk Factors: Unknown Previous Vascular Surgery: R CEA Right Brachial BP: / Left Brachial BP: / Right Left Velocity (cm/s) Spectral Plaque Velocity (cm/s) Spectral Plaque Syst/Diast Broadening Syst/Diast Broadening 83.80/ 13.20 Prox CCA 59.80 / 8.50 60.60/ 9.90 Mid CCA 62.40 / 11.10 61.70/ 13.20 Distal CCA 65.80 / 12.80 Sathya 89.30/ 15.40 Prox ICA 57.30 / 8.50 Sathya 80.50/ 13.20 Mid ICA 52.60 / 9.20 80.00/ 9.30 Distal ICA 47.30 / 7.20 80.50 ECA 94.80 1.07 ICA/CCA 0.87 Antegrade Vertebral Antegrade 62.90/ 10.90 cm/s 37.40/ 9.10 cm/s Tri Subclavian Tri 90.90 131.5 0 CONCLUSIONS Prior RIGHT CEA Right ICA stenosis <50%. Left ICA stenosis <50%. Mild atheromatous plaque left carotid bulb/ICA. Normal antegrade Doppler flow noted in the right vertebral artery. Normal antegrade Doppler flow noted in the left vertebral artery. Brad Morse MD (Electronically Signed) Final Date: 10 December 2021 12:32 S
--- NOTE | 2021-12-10 09:30 | USCV_ITS ---
Sergio Whyte Age: 81 Gender: M : 1940 Exam Date: 12/10/2021 08:40 Ordering Phys: Adin Thorne M.D ([email or web address]) Technologist: Meghana Andrew Exam Location: [facility] [place] Indication: sob BP: 138 / 90 HR: 63 Rhythm: Sinus Technical Quality: Technically difficult study MEASUREMENTS (Male / Female) Normal Values 2D ECHO LV Diastolic Diameter PLAX 3.0 cm 4.2 - 5.9 / 3.9 - 5.3 cm LV Systolic Diameter PLAX 0.7 cm IVS Diastolic Thickness 1.9 cm 0.6 - 1.0 / 0.6 - 0.9 cm IVS Systolic Thickness 1.8 cm LVPW Diastolic Thickness 1.7 cm 0.6 - 1.0 / 0.6 - 0.9 cm LVPW Systolic Thickness 1.2 cm LVOT Diameter 2.1 cm LV Ejection Fraction 2D Teich 97.8 % LV Ejection Fraction MOD 2C 73.2 % LV Ejection Fraction 2C AL 72.9 % LA Diameter 3.3 cm LA Width 5.0 cm LA Height 4.8 cm RA Width 3.7 cm RA Height 3.2 cm Aorta at Sinotubular Diameter 3.2 cm IVC Diameter 2.3 cm DOPPLER AV Peak Velocity 175.0 cm/s LVOT Peak Velocity 106.0 cm/s AV Area Cont Eq vti 2.2 cm squared AV Area Cont Eq pk 2.1 cm squared MV Peak Velocity 132.0 cm/s MV Area PHT 2.5 cm squared Mitral E to A Ratio 0.7 MV E' Velocity 43.5 cm/s Mitral E to MV E' Ratio 14.5 Mitral E to LV E' Lateral Ratio 12.1 Mitral E to LV E' Septal Ratio 18.1 TR Peak Velocity 88.0 cm/s TR Peak Gradient 3.1 mmHg Right Atrial Pressure 3.0 mmHg Pulmonary Artery Systolic Pressu 6.1 mmHg PV Peak Velocity 56.0 cm/s RV Acceleration Time 0.2 s RV Ejection Time 0.3 s RV AcT/ET 0.5 FINDINGS Left Ventricle Technically very limited quality echocardiogram because of poor ultrasonic windows. Grossly normal LV systolic function. Regional wall motion abnormalities cannot be accurately assessed because of poor quality echocardiogram. Grade 1 diastolic dysfunction is seen. Right Ventricle Grossly normal Right Atrium Normal in size Left Atrium Normal in size Mitral Valve Mild mitral annular calcification is seen. No significant stenosis or regurgitation Aortic Valve Not well-visualized. Mild aortic regurgitation is seen. No significant aortic stenosis found. Tricuspid Valve Not well visualized Pulmonic Valve Not visualized Pericardium Normal Aorta Normal in size IVC CONCLUSIONS Technically limited quality echocardiogram because of poor ultrasonic windows. Grossly LV systolic function is normal. Regional wall motion abnormalities cannot be assessed because of poor visualization. Grade 1 diastolic dysfunction. Mild mitral annular calcification seen. Mild aortic regurgitation noted. Compared to prior echocardiogram from 2017, no significant changes are seen. Adin Thorne MD (Electronically Signed) Final Date: 20 December 2021 13:16 S
== END 2021-12-10 08:23 | disposition home or self-care (01) ==
LOC: RAD 08:23
PROVIDERS: PCP Family Medicine; Visit Provider Internal Medicine
DX: I35.0 Nonrheumatic aortic (valve) stenosis (principal); R06.02 Shortness of breath; I65.23 Occlusion and stenosis of bilateral carotid arteries
CPT/HCPCS: 93306; 93880

== ENCOUNTER → 2022-03-20 11:41 | Outpatient (BNVA) | payer MEDICARE, SELFPAY | PROVIDERS: PCP Family Medicine; Visit Provider Internal Medicine | DX: I25.10 Atherosclerotic heart disease of native coronary artery without angina pectoris (principal); E66.9 Obesity, unspecified; Z68.34 Body mass index [BMI] 34.0-34.9, adult; E78.5 Hyperlipidemia, unspecified; G47.33 Obstructive sleep apnea (adult) (pediatric); Z99.89 Dependence on other enabling machines and devices; I65.23 Occlusion and stenosis of bilateral carotid arteries; Z98.890 Other specified postprocedural states; Z87.891 Personal history of nicotine dependence; I13.0 Hypertensive heart and chronic kidney disease with heart failure and stage 1 through stage 4 chronic kidney disease, or unspecified chronic kidney disease; N18.9 Chronic kidney disease, unspecified; I50.9 Heart failure, unspecified | CPT/HCPCS: 99214 ==

== ENCOUNTER 2022-05-17 08:59 | Outpatient (CLI) | payer MEDICARE, SELFPAY ==
--- NOTE | 2022-05-17 09:15 | US_ITS ---
WS: [id number] URINARY BLADDER ULTRASOUND HISTORY: URINARY INCONTINENCE COMPARISON: None available. Urinary bladder is well distended. No intraluminal filling defect. No free fluid adjacent to the urin zack bladder. Prevoid volume: 334 mL Post void volume: 14 mL US/US pelvic limited [id number] IMPRESSION: Normal urinary bladder. No significant post void residual.
== END 2022-05-17 09:00 | disposition home or self-care (01) ==
PROVIDERS: PCP Family Medicine; Visit Provider Family Medicine
DX: R32 Unspecified urinary incontinence (principal)
CPT/HCPCS: 76857

== ENCOUNTER → 2022-09-19 14:56 | Outpatient (BNVA) | payer MEDICARE, SELFPAY | PROVIDERS: PCP Family Medicine; Visit Provider Internal Medicine | DX: I25.10 Atherosclerotic heart disease of native coronary artery without angina pectoris (principal); E66.9 Obesity, unspecified; Z68.34 Body mass index [BMI] 34.0-34.9, adult; E78.5 Hyperlipidemia, unspecified; G47.33 Obstructive sleep apnea (adult) (pediatric); Z99.89 Dependence on other enabling machines and devices; I65.23 Occlusion and stenosis of bilateral carotid arteries; Z98.890 Other specified postprocedural states; I13.0 Hypertensive heart and chronic kidney disease with heart failure and stage 1 through stage 4 chronic kidney disease, or unspecified chronic kidney disease; N18.9 Chronic kidney disease, unspecified; I50.9 Heart failure, unspecified; Z87.891 Personal history of nicotine dependence | CPT/HCPCS: 99214 ==

== ENCOUNTER → 2022-10-01 14:08 | Outpatient (BNVA) | payer MEDICARE, SELFPAY | PROVIDERS: PCP Family Medicine; Visit Provider Dermatology | DX: C44.219 Basal cell carcinoma of skin of left ear and external auricular canal (principal); L57.0 Actinic keratosis; L82.1 Other seborrheic keratosis; L81.4 Other melanin hyperpigmentation; L81.5 Leukoderma, not elsewhere classified; D18.01 Hemangioma of skin and subcutaneous tissue; Z85.828 Personal history of other malignant neoplasm of skin; Z87.891 Personal history of nicotine dependence | CPT/HCPCS: 17000; 17003; 69100; 99213 ==

== ENCOUNTER → 2022-10-22 07:39 | Outpatient (BNVA) | payer MEDICARE, SELFPAY | PROVIDERS: PCP Family Medicine; Visit Provider Dermatology | DX: C44.219 Basal cell carcinoma of skin of left ear and external auricular canal (principal) | CPT/HCPCS: 15260; 17311; 17312 ==

== ENCOUNTER → 2022-11-04 07:44 | Outpatient (BNVA) | payer MEDICARE, SELFPAY | PROVIDERS: PCP Family Medicine; Visit Provider Dermatology | DX: C44.219 Basal cell carcinoma of skin of left ear and external auricular canal (principal) | CPT/HCPCS: 99212 ==

== ENCOUNTER → 2022-11-11 13:36 | Outpatient (BNVA) | payer MEDICARE, SELFPAY | PROVIDERS: PCP Family Medicine; Visit Provider Dermatology | DX: T81.89XA Other complications of procedures, not elsewhere classified, initial encounter (principal); Y99.9 Unspecified external cause status | CPT/HCPCS: 97597; 99024; 99213 ==

== ENCOUNTER → 2022-12-02 11:08 | Outpatient (BNVA) | payer MEDICARE, SELFPAY | PROVIDERS: PCP Family Medicine; Visit Provider Dermatology | DX: Z48.817 Encounter for surgical aftercare following surgery on the skin and subcutaneous tissue (principal); Z85.828 Personal history of other malignant neoplasm of skin; Z87.891 Personal history of nicotine dependence | CPT/HCPCS: 99213 ==

== ENCOUNTER → 2023-03-31 12:55 | Outpatient (BNVA) | payer MEDICARE, SELFPAY | PROVIDERS: PCP Family Medicine; Visit Provider Dermatology | DX: Z08 Encounter for follow-up examination after completed treatment for malignant neoplasm (principal); Z85.828 Personal history of other malignant neoplasm of skin; L57.0 Actinic keratosis | CPT/HCPCS: 17000; 99213 ==

== ENCOUNTER → 2023-04-10 12:34 | Outpatient (BNVA) | payer MEDICARE, SELFPAY | PROVIDERS: PCP Family Medicine; Visit Provider Internal Medicine Cardiovascular Disease | DX: Z98.890 Other specified postprocedural states (principal); I65.23 Occlusion and stenosis of bilateral carotid arteries; I35.0 Nonrheumatic aortic (valve) stenosis; I13.0 Hypertensive heart and chronic kidney disease with heart failure and stage 1 through stage 4 chronic kidney disease, or unspecified chronic kidney disease; N18.9 Chronic kidney disease, unspecified; I50.9 Heart failure, unspecified; I25.10 Atherosclerotic heart disease of native coronary artery without angina pectoris; E78.5 Hyperlipidemia, unspecified; E66.9 Obesity, unspecified; Z68.35 Body mass index [BMI] 35.0-35.9, adult; G47.33 Obstructive sleep apnea (adult) (pediatric); Z99.89 Dependence on other enabling machines and devices; C64.9 Malignant neoplasm of unspecified kidney, except renal pelvis; Z90.5 Acquired absence of kidney; Z87.891 Personal history of nicotine dependence | CPT/HCPCS: 99214 ==

== ENCOUNTER → 2023-10-02 13:34 | Outpatient (BNVA) | payer MEDICARE, SELFPAY | PROVIDERS: PCP Family Medicine; Visit Provider Nurse Practitioner Family | DX: L57.0 Actinic keratosis (principal); L82.1 Other seborrheic keratosis; L81.4 Other melanin hyperpigmentation; D18.01 Hemangioma of skin and subcutaneous tissue; L81.5 Leukoderma, not elsewhere classified | CPT/HCPCS: 17000; 99213 ==

== ENCOUNTER → 2023-10-21 11:47 | Outpatient (BNVA) | payer MEDICARE, SELFPAY | PROVIDERS: PCP Family Medicine; Visit Provider Internal Medicine Cardiovascular Disease | DX: I35.0 Nonrheumatic aortic (valve) stenosis (principal); Z98.890 Other specified postprocedural states; I65.23 Occlusion and stenosis of bilateral carotid arteries; I13.0 Hypertensive heart and chronic kidney disease with heart failure and stage 1 through stage 4 chronic kidney disease, or unspecified chronic kidney disease; I50.9 Heart failure, unspecified; N18.9 Chronic kidney disease, unspecified; I25.10 Atherosclerotic heart disease of native coronary artery without angina pectoris; E78.5 Hyperlipidemia, unspecified; E66.9 Obesity, unspecified; Z90.5 Acquired absence of kidney; C64.9 Malignant neoplasm of unspecified kidney, except renal pelvis; M35.00 Sjogren syndrome, unspecified; G47.33 Obstructive sleep apnea (adult) (pediatric); Z99.89 Dependence on other enabling machines and devices; Z68.35 Body mass index [BMI] 35.0-35.9, adult | CPT/HCPCS: 99214 ==

== ENCOUNTER 2023-11-06 08:13 | Outpatient (CLI) | payer MEDICARE, SELFPAY ==
--- NOTE | 2023-11-06 08:30 | USCV_ITS ---
Sergio Whyte Age: 83 Gender: M : 1940 Exam Date: 11/06/2023 08:42 Ordering Phys: Zak Medeiros MD ([email or web address]) Technologist: THIAGO [place] [facility] [place]: AVS BP: 132 / 66 HR: 67 Rhythm: Sinus Technical Quality: Suboptimal MEASUREMENTS (Male / Female) Normal Values 2D ECHO LV Diastolic Diameter PLAX 6.3 cm 4.2 - 5.9 / 3.9 - 5.3 cm IVS Diastolic Thickness 1.1 cm 0.6 - 1.0 / 0.6 - 0.9 cm IVS Systolic Thickness 1.3 cm LVPW Diastolic Thickness 1.6 cm 0.6 - 1.0 / 0.6 - 0.9 cm LVPW Systolic Thickness 1.7 cm LVOT Diameter 2.0 cm LV Ejection Fraction 2D Teich 53.6 % LV Ejection Fraction MOD 4C 46.4 % LV Ejection Fraction MOD 2C 54.6 % LV Ejection Fraction 2C AL 57.8 % LA Diameter 2.8 cm RA Systolic Volume 4C AL 43.3 ml RA Systolic Volume 4C MOD 41.3 ml LA Sys Volume AL 57.6 cm cubed LA Sys Volume Index AL 24.7 cm cubed/m squared Aorta at Sinotubular Diameter 1.6 cm M-MODE LA Ao Ratio MM 1.0 AV Cusp Separation MM 1.3 cm DOPPLER AV Peak Velocity 176.0 cm/s LVOT Peak Velocity 101.0 cm/s AV Area Cont Eq vti 2.1 cm squared AV Area Cont Eq pk 1.8 cm squared MV Peak Velocity 147.0 cm/s MV Area PHT 2.2 cm squared Mitral E to A Ratio 0.7 TR Peak Velocity 106.0 cm/s TR Peak Gradient 4.5 mmHg TR Mean Velocity 85.0 cm/s TR Mean Gradient 3.0 mmHg TR Velocity Time Integral 35.3 cm TV Peak E Velocity 30.0 cm/s Right Atrial Pressure 3.0 mmHg Pulmonary Artery Systolic Pressu 7.5 mmHg FINDINGS Left Ventricle Limited quality echocardiogram because of poor ultrasonic windows. Grossly LV systolic function is normal. Regional wall motion abnormalities cannot accurately be assessed because of limited visualization. Grade 1 diastolic dysfunction. Right Ventricle Grossly normal Right Atrium Normal in size Left Atrium Normal in size Mitral Valve Moderate mitral annular calcification. Mild mitral regurgitation. Aortic Valve Not well-visualized. Mild aortic stenosis with aortic valve area 1.8 cm2 and mean gradient across aortic valve of 8 mmHg. Tricuspid Valve Not well visualized Pulmonic Valve Not visualized Pericardium Grossly normal Aorta Not well visualized IVC Not visualized CONCLUSIONS Technically limited quality echocardiogram because of poor ultrasonic windows. Grossly LV systolic function is normal. Grade 1 diastolic dysfunction. Mild mitral regurgitation. Mild aortic stenosis. Accurate comparison with prior study is not possible because of limited visualization of cardiac structures. Adin Thorne MD (Electronically Signed) Final Date: 24 November 2023 11:11 S
== END 2023-11-06 08:14 | disposition home or self-care (01) ==
PROVIDERS: PCP Family Medicine; Visit Provider Internal Medicine Cardiovascular Disease
DX: I08.0 Rheumatic disorders of both mitral and aortic valves (principal)
CPT/HCPCS: 93306

== ENCOUNTER → 2024-04-05 13:06 | Outpatient (BNVA) | payer MEDICARE, SELFPAY | PROVIDERS: PCP Family Medicine; Visit Provider Nurse Practitioner Family | DX: L82.1 Other seborrheic keratosis (principal); L81.4 Other melanin hyperpigmentation; D18.01 Hemangioma of skin and subcutaneous tissue; L57.8 Other skin changes due to chronic exposure to nonionizing radiation; Z08 Encounter for follow-up examination after completed treatment for malignant neoplasm; Z85.828 Personal history of other malignant neoplasm of skin; L57.0 Actinic keratosis | CPT/HCPCS: 17000; 99213 ==

== ENCOUNTER 2024-04-06 07:43 | Outpatient (CLI) | payer MEDICARE, SELFPAY ==
--- NOTE | 2024-04-06 07:47 | CTR_ITS ---
PROCEDURE INFORMATION: Exam: CT Chest Without Contrast; Diagnostic Exam date and time: 04/06/2024 8:09 AM Age: 83 years old Clinical indication: Shortness of breath; Prior surgery; Surgery date: 6+ months; Surgery type: Heart stents; Patient HX: HX of kindey cancer; Additional info: Restrictive lung dz TECHNIQUE: Imaging protocol: Diagnostic computed tomography of the chest without contrast. Radiation optimization: All CT scans at this facility use at least one of these dose optimization techniques: automated exposure control; mA and/or kV adjustment per patient size (includes targeted exams where dose is matched to clinical indication); or iterative reconstruction. COMPARISON: [place] [id number] 07/16/2020 7:23 PM RADIATION DOSE METRICS: Total DLP (mGy-cm): 590.98 FINDINGS: Lungs: Mild atelectasis at the lung bases. Pleural spaces: Unremarkable. No pneumothorax. No pleural effusion. Heart: Unremarkable. No cardiomegaly. No pericardial effusion. Coronary arteries: Heavy coronary artery calcifications. Lymph nodes: Visible central lymph nodes are not pathologically enlarged and are unchanged. Vasculature: Unremarkable. No aortic aneurysm. Gallbladder and biliary ducts: Cholelithiasis. Intestine: Barely imaged extensive diverticulosis. Bones/joints: Deformity from healed right rib fractures. Soft tissues: Unremarkable. CT/CT chest wo con [id number] IMPRESSION: No acute intrathoracic pathology.
== END 2024-04-06 07:44 | disposition home or self-care (01) ==
PROVIDERS: PCP Family Medicine; Visit Provider Family Medicine
DX: J98.4 Other disorders of lung (principal); I25.84 Coronary atherosclerosis due to calcified coronary lesion; N20.0 Calculus of kidney; K57.90 Diverticulosis of intestine, part unspecified, without perforation or abscess without bleeding
CPT/HCPCS: 71250

== ENCOUNTER 2024-04-13 12:20 | Outpatient (CLI) | payer MEDICARE, SELFPAY ==
[2024-04-13 12:47] VITALS: PULSE 76; RESP 18; O2SAT 96
[2024-04-13] MEDS: albuterol 2.5 mg/3 mL Neb INHALATION (12:48)
[2024-04-13 12:52] VITALS: PULSE 70
== END 2024-04-13 12:21 | disposition home or self-care (01) ==
LOC: RT 12:20
PROVIDERS: PCP Family Medicine; Visit Provider Family Medicine
DX: J98.4 Other disorders of lung (principal); R94.2 Abnormal results of pulmonary function studies
CPT/HCPCS: 94060; 94726; 94729; J7613

== ENCOUNTER → 2024-04-27 14:38 | Outpatient (BNVA) | payer MEDICARE, SELFPAY | PROVIDERS: PCP Family Medicine; Visit Provider Internal Medicine | DX: I13.0 Hypertensive heart and chronic kidney disease with heart failure and stage 1 through stage 4 chronic kidney disease, or unspecified chronic kidney disease (principal); N18.9 Chronic kidney disease, unspecified; I50.9 Heart failure, unspecified; E66.9 Obesity, unspecified; E78.5 Hyperlipidemia, unspecified; I25.10 Atherosclerotic heart disease of native coronary artery without angina pectoris; G47.33 Obstructive sleep apnea (adult) (pediatric); Z99.89 Dependence on other enabling machines and devices; I65.23 Occlusion and stenosis of bilateral carotid arteries; Z98.890 Other specified postprocedural states; Z68.35 Body mass index [BMI] 35.0-35.9, adult | CPT/HCPCS: 99213 ==

== ENCOUNTER 2024-07-12 08:56 | Emergency (ER) | payer MEDICARE, SELFPAY ==
[2024-07-12 09:03] VITALS: BP 156/73; PULSE 75; RESP 16; TEMP 36.8; O2SAT 94; BMI 34.9
--- NOTE | 2024-07-12 09:10 | W.ED.EAR ---
HPI - Ear Problem General: Chief complaint: Ear Stated complaint: RT ear injury Time Seen by Provider: 07/12/24 08:57 Source: patient Mode of arrival: ambulatory Limitations: no limitations History of Present Illness: Patient is a very nice 83-year-old male who presents to ED today with a complaint of bleeding from or around his right ear. Patient states he woke up this morning and noticed a large amount of blood on his pillow and noticed blood was coming from around the right ear. He is not complaining of right ear pain. No injury or trauma. He does have a known skin lesion that he can feel back behind his right ear. Wonders if this could be skin cancer. 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 Upon arrival bleeding has subsided. Patient has bilateral chronic hearing loss-this is unchanged. MD Complaint: other (bleeding from/near R ear) Location: right ear Duration: resolved Severity: mild Relieving factors: nothing Exacerbating factors: nothing Discharge from ear: no Associated symptoms: Reports no associated symptoms; Denies ear or mastoid pain or tinnitus Treatment prior to arrival: none Related Data Home Medications ?Medication ?Instructions ?Recorded ?Confirmed fluticasone propionate 50 1 spray intranasal BID@0700,1900 09/07/19 04/27/24 mcg/actuation nasal spray,suspension (Allergy Relief (fluticasone)) omeprazole 20 mg capsule,delayed 40 mg PO DAILY@0700 09/07/19 04/27/24 release cholecalciferol (vitamin D3) 10 1 tab PO DAILY@0712/08/19 04/27/24 mcg (400 unit) capsule (Vitamin D3) escitalopram oxalate 20 mg tablet 20 mg PO DAILY@0700 12/08/19 04/27/24 multivitamin 1 tab PO DAILY@0700 12/08/19 04/27/24 albuterol sulfate 90 mcg/actuation 2 puff inhalation Q6H PRN 05/16/20 04/27/24 aerosol inhaler (Ventolin HFA) Shortness Of Breath alclometasone 0.05 % topical cream 1 applic topical BID 05/16/20 10/21/23 Allergy 1 tab PO DAILY@0700 07/16/20 04/27/24 aspirin 81 mg tablet,delayed 81 mg PO DAILY@0700 07/16/20 04/27/24 release finasteride 5 mg tablet 5 mg PO DAILY 09/19/22 04/27/24 hydrochlorothiazide 12.5 mg tablet 12.5 mg PO DAILY 04/10/23 04/27/24 fluticasone fur. 100 mcg-umeclid 1 inh inhalation DAILY PRN 04/27/24 04/27/24 62.5 mcg-vilant 25 mcg inhalat.powder (Trelegy Ellipta) Previous Rx's ?Medication ?Instructions ?Recorded clobetasol 0.05 % topical ointment 1 applic topical BID 2 weeks #60 05/16/20 grams ketoconazole 2 % shampoo 1 applic topical .2 x weekly #120 05/16/20 mL halobetasol propionate 0.05 % 1 applic topical BID #50 grams 09/14/21 topical cream isosorbide mononitrate 30 mg See Rx Instructions .Route 01/30/24 tablet,extended release 24 hr .COMPLEX #90 tabs isosorbide mononitrate 60 mg See Rx Instructions .Route 01/30/24 tablet,extended release 24 hr .COMPLEX #90 tabs simvastatin 40 mg tablet 40 mg PO DAILY@0700 #90 tabs 02/17/24 terazosin 10 mg capsule 10 mg PO DAILY@0700 #90 caps 05/03/24 Allergies Allergy/AdvReac Type Severity Reaction Status Date / Time No Known Allergies Allergy Verified 04/27/24 15:03 Review of Systems ENMT: Reports: other (chronic bilateral hearing loss); Denies: ear or mastoid pain, ear discharge, change in hearing or tinnitus PFSH ED PFSH: Medical History Renal cell carcinoma Asthma Polyarthralgia Shingles TMJ (dislocation of temporomandibular joint) BPH (benign prostatic hyperplasia) History of nonmelanoma skin cancer Obesity SOB (shortness of breath) Hyperlipidemia Erectile disorder due to medical condition in male CKD (chronic kidney disease) ASHD (arteriosclerotic heart disease) HTN (hypertension) CHF (congestive heart failure) CANDIDA on CPAP Sjogren's disease Aortic stenosis Carotid stenosis, bilateral Surgical History History of nephrectomy S/P knee replacement Previous back surgery S/P tonsillectomy S/P shoulder surgery S/P rotator cuff repair S/P carotid endarterectomy History of nephrectomy, right Family History Mother Congestive heart failure (CHF) Sister Cancer UTERINE Other CAD (coronary artery disease) Hyperlipidemia Social History Smoking and tobacco/nicotine status: never used tobacco/nicotine Alcohol intake: never Substance/Drug Use: never Household members: spouse Marital status: Physical Exam Const: COMMON NORMALS: no acute distress, average body habitus, patient oriented x3, no limitations, healthy appearing, alert and well nourished GENERAL APPEARANCE: cooperative ORIENTATION/CONSCIOUSNESS: Yes awake, Yes oriented to person, Yes oriented to place and Yes oriented to time HENMT: COMMON NORMALS: normocephalic, atraumatic, EAC's normal (cerumen to R EAC that was removed; otherwise EACs are normal) and TM's normal bilaterally HEAD & SCALP: normal to inspection, normocephalic and atraumatic FACE & SINUS: normal facial exam EXTERNAL EAR: Yes mastoids normal, Yes no periauricular adenopathy and Yes other (pt has scabbed skin lesion posterior R ear; papular with raised borders) EXTERNAL AUDITORY CANAL: EAC's normal (cerumen to R EAC that was removed; otherwise EACs are normal) TYMPANIC MEMBRANE: TM's normal bilaterally and TM normal on the left (bilateral myringosclerosis) Neuro: COMMON NORMALS: patient oriented x3 SENSORIUM/ORIENTATION: Yes alert, Yes oriented to person, Yes oriented to place and Yes oriented to time Course Vital Signs: Vital signs: Vital Signs Temperature 98.2 F 07/12/24 09:03 Pulse Rate 75 07/12/24 09:03 Respiratory Rate 16 07/12/24 09:03 Blood Pressure 156/73 07/12/24 09:03 Pulse Oximetry 94 07/12/24 09:03 Oxygen Delivery Me thod Room Air 07/12/24 09:03 MDM - Ear Medical Decision Making Patient has no bleeding from his right EAC or TM. He does have a scabbed skin lesion to his posterior right auricle that was probably the culprit of the bleeding. Bleeding has subsided upon arrival. Concern for skin malignancy based on appearance. Had similar lesion to left ear that required removal and was reportedly cancerous. He would like referral back to Dr. Winn as she treated the lesion to the left ear. CM referral placed for this. Medical Records I reviewed the patient's medical records. No radiology studies performed this visit Discharge Plan Discharge Patient Disposition: Home Clinical Impression: Hemorrhage of skin lesion Condition: Stable Prescriptions: No Action omeprazole 20 mg capsule,delayed release(DR/EC) 40 mg PO DAILY@0700 fluticasone propionate [Allergy Relief (fluticasone)] 50 mcg/actuation spray,suspension 1 spray INTRANASAL BID@0700,1900 albuterol sulfate [Ventolin HFA] 90 mcg/actuation HFA aerosol inhaler 2 puff inhalation Q6H PRN (Reason: Shortness Of Breath) alclometasone 0.05 % cream 1 applic topical BID ketoconazole 2 % shampoo 1 applic topical .2 x weekly Qty: 120 3RF Rx Instructions: Lather into scalp 2 times weekly. Allow to sit on scalp for 5 minutes before rinsing. clobetasol 0.05 % ointment 1 applic topical BID 14 Days Qty: 60 1RF Rx Instructions: Apply BID to back x 2 weeks then off one then on 2 weeks etc. halobetasol propionate 0.05 % cream 1 applic topical BID Qty: 50 1RF Rx Instructions: Apply to affected areas twice daily no more than 2 weeks per month. Not for face finasteride 5 mg tablet 5 mg PO DAILY hydrochlorothiazide 12.5 mg tablet 12.5 mg PO DAILY Trelegy Ellipta 100-62.5-25 mcg blister with device 1 inh inhalation DAILY PRN isosorbide mononitrate 30 mg tablet extended release 24 hr See Rx Instructions .ROUTE .COMPLEX Qty: 90 3RF Dose Instruction: TAKE 1 TABLET BY MOUTH 30 DAILY TAKE WITH 60 MG TABLET TO EQUAL 90 MG DAILY TOTAL Rx Instructions: TAKE 1 TABLET BY MOUTH 30 DAILY TAKE WITH 60 MG TABLET TO EQUAL 90 MG DAILY TOTAL isosorbide mononitrate 60 mg tablet extended release 24 hr See Rx Instructions .ROUTE .COMPLEX Qty: 90 3RF Dose Instruction: TAKE 1 TABLET BY MOUTH DAILY WITH 30 MG TABLET TO EQUAL 90 MG DAILY TOTAL Rx Instructions: TAKE 1 TABLET BY MOUTH DAILY WITH 30 MG TABLET TO EQUAL 90 MG DAILY TOTAL simvastatin 40 mg tablet 40 mg PO DAILY@0700 Qty: 90 3RF terazosin 10 mg capsule 10 mg PO DAILY@0700 Qty: 90 3RF multivitamin Tablet 1 tab PO DAILY@0700 cholecalciferol (vitamin D3) [Vitamin D3] 10 mcg (400 unit) Capsule 1 tab PO DAILY@0700 escitalopram oxalate 20 mg tablet 20 mg PO DAILY@0700 Allergy 1 tab PO DAILY@0700 Aspir-81 81 mg Tablet,Delayed Release (Dr/Ec) 81 mg PO DAILY@0700 Discharge Orders: Discharge ED (Routine); Ordered 07/12/24 Ordered By: Cadence Garner Referrals: Matthew Cartagena MD [Primary Care Provider] - Activity Restrictions/Additional Instructions: As we discussed, we will refer you over to our dermatology team so they can assess the skin lesion on your right ear. Print Language: Romanian Coding Level of Care Code ED Digital Sales Assistant for Dao Mosquera
--- NOTE | 2024-07-12 09:40 | DCPLANNER ---
messaged dermatology for er f/u
--- NOTE | 2024-07-12 09:40 | PC.PHAR ---
Pt has a medication list in his wallet. New order for Myrbetriq 50mg daily-is not on it yet but verbally verified.
[2024-07-12 09:41] VITALS: BP 157/83; PULSE 61; O2SAT 91
== END 2024-07-12 09:42 | disposition home or self-care (01) ==
PROVIDERS: Emergency Provider Physician Assistant; PCP Family Medicine
DX: H93.8X1 Other specified disorders of right ear (principal); E78.5 Hyperlipidemia, unspecified; I13.0 Hypertensive heart and chronic kidney disease with heart failure and stage 1 through stage 4 chronic kidney disease, or unspecified chronic kidney disease; N18.9 Chronic kidney disease, unspecified; I50.9 Heart failure, unspecified
CPT/HCPCS: 99281

== ENCOUNTER → 2024-07-13 09:19 | Outpatient (BNVA) | payer MEDICARE, SELFPAY | PROVIDERS: PCP Family Medicine; Visit Provider Nurse Practitioner Family | DX: L82.1 Other seborrheic keratosis (principal); L81.4 Other melanin hyperpigmentation; D18.01 Hemangioma of skin and subcutaneous tissue; L57.8 Other skin changes due to chronic exposure to nonionizing radiation; Z08 Encounter for follow-up examination after completed treatment for malignant neoplasm; Z85.828 Personal history of other malignant neoplasm of skin; C44.41 Basal cell carcinoma of skin of scalp and neck; L57.0 Actinic keratosis | CPT/HCPCS: 11102; 17000; 99213 ==

== ENCOUNTER → 2024-08-05 13:11 | Outpatient (BNVA) | payer MEDICARE, SELFPAY | PROVIDERS: PCP Family Medicine; Visit Provider Nurse Practitioner Family | DX: D23.4 Other benign neoplasm of skin of scalp and neck (principal); L82.1 Other seborrheic keratosis; L81.4 Other melanin hyperpigmentation; D18.01 Hemangioma of skin and subcutaneous tissue; L57.8 Other skin changes due to chronic exposure to nonionizing radiation; Z08 Encounter for follow-up examination after completed treatment for malignant neoplasm; Z85.828 Personal history of other malignant neoplasm of skin | CPT/HCPCS: 99214 ==

== ENCOUNTER → 2024-08-19 14:51 | Outpatient (BNVA) | payer MEDICARE, SELFPAY | PROVIDERS: PCP Family Medicine; Visit Provider Nurse Practitioner Family | DX: D23.4 Other benign neoplasm of skin of scalp and neck (principal); L82.1 Other seborrheic keratosis; L81.4 Other melanin hyperpigmentation; D18.01 Hemangioma of skin and subcutaneous tissue; L57.8 Other skin changes due to chronic exposure to nonionizing radiation; Z08 Encounter for follow-up examination after completed treatment for malignant neoplasm; Z85.828 Personal history of other malignant neoplasm of skin; L82.0 Inflamed seborrheic keratosis; Z78.9 Other specified health status; D48.5 Neoplasm of uncertain behavior of skin; L57.0 Actinic keratosis | CPT/HCPCS: 11102; 17000; 17110; 99213 ==

== ENCOUNTER → 2024-09-01 13:05 | Outpatient (BNVA) | payer MEDICARE, SELFPAY | PROVIDERS: PCP Family Medicine; Visit Provider Nurse Practitioner Family | DX: L21.8 Other seborrheic dermatitis (principal); D23.4 Other benign neoplasm of skin of scalp and neck; Z08 Encounter for follow-up examination after completed treatment for malignant neoplasm; Z85.828 Personal history of other malignant neoplasm of skin; L57.0 Actinic keratosis | CPT/HCPCS: 17000; 99214 ==

== ENCOUNTER → 2024-10-25 13:58 | Outpatient (BNVA) | payer MEDICARE, SELFPAY | PROVIDERS: PCP Family Medicine; Visit Provider Internal Medicine | DX: I13.0 Hypertensive heart and chronic kidney disease with heart failure and stage 1 through stage 4 chronic kidney disease, or unspecified chronic kidney disease (principal); N18.9 Chronic kidney disease, unspecified; I50.9 Heart failure, unspecified; E66.9 Obesity, unspecified; E78.5 Hyperlipidemia, unspecified; I25.10 Atherosclerotic heart disease of native coronary artery without angina pectoris; G47.33 Obstructive sleep apnea (adult) (pediatric); Z99.89 Dependence on other enabling machines and devices; I65.23 Occlusion and stenosis of bilateral carotid arteries; Z98.890 Other specified postprocedural states; Z87.891 Personal history of nicotine dependence; Z68.34 Body mass index [BMI] 34.0-34.9, adult | CPT/HCPCS: 99214 ==

== ENCOUNTER → 2024-12-02 12:50 | Outpatient (BNVA) | payer MEDICARE, SELFPAY | PROVIDERS: PCP Family Medicine; Visit Provider Nurse Practitioner Family | DX: D23.4 Other benign neoplasm of skin of scalp and neck (principal); L72.0 Epidermal cyst; L21.8 Other seborrheic dermatitis; Z08 Encounter for follow-up examination after completed treatment for malignant neoplasm; Z85.828 Personal history of other malignant neoplasm of skin; L57.0 Actinic keratosis | CPT/HCPCS: 17000; 99213 ==

== ENCOUNTER → 2024-12-31 13:18 | Outpatient (BNVA) | payer MEDICARE, SELFPAY | PROVIDERS: PCP Family Medicine; Visit Provider Nurse Practitioner Family | DX: D23.4 Other benign neoplasm of skin of scalp and neck (principal); L72.0 Epidermal cyst; L81.4 Other melanin hyperpigmentation; L57.8 Other skin changes due to chronic exposure to nonionizing radiation; Z08 Encounter for follow-up examination after completed treatment for malignant neoplasm; Z85.828 Personal history of other malignant neoplasm of skin | CPT/HCPCS: 99213 ==

== ENCOUNTER → 2025-04-26 13:04 | Outpatient (BNVA) | payer MEDICARE, SELFPAY | PROVIDERS: PCP Family Medicine; Visit Provider Internal Medicine | DX: I25.10 Atherosclerotic heart disease of native coronary artery without angina pectoris (principal); I13.0 Hypertensive heart and chronic kidney disease with heart failure and stage 1 through stage 4 chronic kidney disease, or unspecified chronic kidney disease; N18.9 Chronic kidney disease, unspecified; I50.9 Heart failure, unspecified; I65.23 Occlusion and stenosis of bilateral carotid arteries; Z98.890 Other specified postprocedural states; I35.0 Nonrheumatic aortic (valve) stenosis; Z87.891 Personal history of nicotine dependence | CPT/HCPCS: 99214 ==